=== PATIENT | male | born 1975 | race Caucasian/White ===

== ENCOUNTER 2016-06-04 00:35 | Emergency (ER) | payer BC ==
[~2016-06-04] VITALS: Ht 177.8 cm; Wt 117.0 kg
[~2016-06-04 00:35] MED LIST: FAMO-18 PO; LOSA100T7 PO; SIMV20TA97 PO; WARF6TAB35 PO
[2016-06-04 00:43] VITALS: Ht 177.8 cm; Wt 117.0 kg
--- NOTE | 2016-06-04 04:06 | RADRPT ---
PROCEDURE: XR Chest. CLINICAL INDICATION: Rule out metal FB TECHNIQUE: Single frontal chest x-ray. COMPARISON: None. FINDINGS: The lungs are clear. No focal opacification is seen. The cardiomediastinal silhouette is unremarka ble. The osseous structures are unremarkable. IMPRESSION: 1. There is no acute cardiopulmonary process. No radiopaque foreign body is seen. RPTAT: HJES .Manjinder Middleton MD, MD Date Time Electronically viewed and signed by .Manjinder Middleton MD, on 06/04/2016 04:05 .S/
--- NOTE | 2016-06-04 04:08 | RADRPT ---
PROCEDURE: XR Abdomen. CLINICAL INDICATION: Rule out metal foreign body TECHNIQUE: 3 AP views of the abdomen are available for review. COMPARISON: None. FINDINGS: The bowel gas pattern is normal. There is no evidence of obstruction. Phleboliths in lower pelvis.. The osseous structures are unremarkable. IMPRESSION: 1. Unremarkable abdomen x-ray series. No radiopaque foreign body is seen. RPTAT: HJES .Manjinder Middleton MD, MD Date Time Electronically viewed and signed by .Manjinder Middleton MD, on 06/04/2016 04:08 .S/
[2016-06-04 04:19] VITALS: BP 130/75; PULSE 70; RESP 20; TEMP 98.1
--- NOTE | 2016-06-04 04:41 | ERD ---
ER Documentation Chief Complaint Date/Time DATE: 06/04/16 TIME: 04:38 Chief Complaint swallowed a piece of his tooth brace 1o minutes ago HPI This is a 41-year-old male with a history of a blood clot on warfarin 2 years ago presenting to the emergency room stating that he swallowed a piece of metal wiring from his braces. Patient states that it is about 1 cm long, he states that he swallowed on it while he was chewing on something an hour ago. Patient denies any significant abdominal pain, melena, hematochezia, vomiting, nausea, fever. ROS All systems reviewed and are negative except as per history of present illness. 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) Anesthesia Reaction: No Hx Neurological Disorder: No Hx Respiratory Disorders: No Hx Cardiac Disorders: Yes (HTN, HYPERLIPIDEMIA) Hx Psychiatric Problems: No Hx Miscellaneous Medical Probl: No (blood clot leg) Hx Alcohol Use: Yes (SOCIALLY) Hx Substance Use: No Hx Tobacco Use: No Smoking Status: Never smoker Physical Exam Vitals Vital Signs Date Time Temp Pulse Resp B/P Pulse Ox O2 Delivery O2 Flow Rate FiO2 06/04/16 04:19 98.1 70 20 130/75 98 06/04/16 00:43 98.5 92 20 145/81 98 Physical Exam GENERAL: well-developed/well-nourished, in no apparent distress, non-toxic appearing HENT: NC/AT, moist mucous membranes EYES: Conjunctiva normal NECK: Supple, no lymphadenopathy PULM: CTA bilaterally, no rales, rhonchi, or wheezing heard CV: Normal S1S2, RRR, good capillary refill GI: Soft, non-distended, non-tender to palpation Normal bowel sounds, no masses or organomegaly felt on exam No gross peritonitis, no bruits Negative Rovsing, negative Aragon, negative McBurney's point, Negative CVAT BACK: No masses EXT: No clubbing, cyanosis, or edema NEURO: Alert and Orientated SKIN: Intact, normal turgor PSYCH: Normal mood and mentation Procedures/MDM This is a 41-year-old male with a history of a blood clot on warfarin 2 years ago presenting to the emergency room stating that he swallowed a 1cm piece of metal wiring from his braces 1 hour prior to being seen. I have a low suspicion for abdominal perforation due to his appearance, patient appears well and smiling. He has stable vital signs. A chest x-ray and XR KUB was done and did not show any radiopaque foreign bodies. I discussed with the patient that he is to return to the emergency room for any worsening signs or symptoms. I have given him precautions were to follow. Patient appears very stable and well for discharge. He understands and agrees with Departure Diagnosis: Primary Impression: Swallowed foreign body Condition: Stable Patient Instructions: Swallowed Foreign Body (Adult) Additional Instructions: FOLLOW UP WITH YOUR PRIMARY CARE PHYSICIAN TOMORROW.Return to this facility if you are not improving as expected. Take all medicines as directed. Return to this facility if you are not improving as expected. ANGELIC DODD PA-C Jun 04, 2016 04:41
== END 2016-06-04 04:19 | disposition home or self-care (01) ==
LOC: FTE 00:35
DX: T18.9XXA Foreign body of alimentary tract, part unspecified, initial encounter (principal); I10 Essential (primary) hypertension; X58.XXXA Exposure to other specified factors, initial encounter; Y92.9 Unspecified place or not applicable; Z79.01 Long term (current) use of anticoagulants
CPT/HCPCS: 71010; 74000

== ENCOUNTER 2016-07-26 21:51 | Emergency (ER) | payer BC ==
[~2016-07-26] VITALS: Ht 180.3 cm; Wt 114.0 kg
[~2016-07-26 21:51] MED LIST changes: +SIMV20TA PO; -SIMV20TA97 PO
[2016-07-26 21:55] VITALS: Ht 180.3 cm; Wt 114.0 kg
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
== END 2016-07-27 00:09 | disposition home or self-care (01) ==
LOC: FTE 21:51
DX: Z00.00 Encounter for general adult medical examination without abnormal findings (principal); I10 Essential (primary) hypertension; Z79.01 Long term (current) use of anticoagulants
CPT/HCPCS: 99282

== ENCOUNTER 2017-02-21 18:42 | Emergency (ER) | payer BC ==
[~2017-02-21] VITALS: Ht 180.3 cm; Wt 118.0 kg
[~2017-02-21 18:42] MED LIST changes: -FAMO-18 PO; +FAMO-96 PO
[2017-02-21 18:55] VITALS: Ht 180.3 cm; Wt 118.0 kg
--- NOTE | 2017-02-21 20:24 | ERD ---
ER Documentation Chief Complaint Date/Time DATE: 02/21/17 TIME: 20:21 Chief Complaint Mid sternal chest pain x1 week, non radiating. Hx: DVT(still coumadin) HPI Patient is a 41-year-old male with history of recurrent DVT presented to the ER with 2 weeks of gradual onset, constant, dull aching pain to his left lower extremity. The pain is from the medial thigh all the way down to his heel and is maximal at his heel. He also reports having intermittent episodes of sharp and pins and needles like substernal chest pain lasting a few seconds at a time. He reports nonexertional, mild dyspnea for the last week. He denies hemoptysis or cough. He denies fever. He is currently taking Coumadin. He states that he stopped taking it for 2 weeks approximately 2 months ago but has been compliant since. The patient acknowledges feeling anxious due to concern of recurrent DVT. ROS All systems reviewed and are negative except as per history of present illness. Medications Home Meds Reported Medications Cholecalciferol* (Vitamin D*) Unknown Strength Tablet, 1 TAB PO DAILY, TAB 02/21/17 Warfarin Sodium* (Coumadin*) 1 Mg Tablet, 6 MG PO DAILY, TAB 02/21/17 Simvastatin* (Zocor*) 20 Mg Tablet, 20 MG PO QHS, #30 TAB 12/15/15 Losartan Potassium* (Losartan Potassium*) 100 Mg Tablet, 100 MG PO DAILY, TAB 12/15/15 Discontinued Reported Medications Warfarin Sodium* (Warfarin Sodium*) 6 Mg Tablet, 6 MG PO DAILY, TAB 12/15/15 Discontinued Scripts Famotidine* (Pepcid*) 20 Mg Tablet, 20 MG PO BID for 30 Days, TAB Prov:AILEEN HEAD DO 12/15/15 Allergies Allergies: Coded Allergies: No Known Allergies (Verified Allergy, Mild, 02/21/17) PMhx/Soc Past medical history: DVT 2, hypertension, hyperlipidemia Past surgical history: Aortic angioplasty for coarctation Social history: Denies tobacco, alcohol or illicit drugs 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) Anesthesia Reaction: No Hx Neurological Disorder: No Hx Respiratory Disorders: No Hx Cardiac Disorders: Yes (HTN, HYPERLIPIDEMIA) Hx Psychiatric Problems: No Hx Miscellaneous Medical Probl: No (blood clot leg) Hx Alcohol Use: Yes (SOCIALLY) Hx Substance Use: No Hx Tobacco Use: No Smoking Status: Never smoker FmHx Family History: No coronary disease, No diabetes Physical Exam Vitals Vital Signs Date Time Temp Pulse Resp B/P Pulse Ox O2 Delivery O2 Flow Rate FiO2 02/21/17 21:41 97.6 82 18 130/84 99 Room Air 02/21/17 20:05 97.6 84 18 134/89 99 Room Air 02/21/17 18:55 97.6 89 18 146/88 99 Physical Exam Const: Alert, no acute distress Head: Atraumatic Eyes: Normal Conjunctiva, No pallor, no icterus ENT: Normal External Ears, Nose and Mouth. Moist mucous membranes Neck: Full range of motion..~ No meningismus. No JVD Resp: Clear to auscultation bilaterally, No wheezes, no rales Cardio: Regular rate and rhythm, no murmurs Abd: Soft, non tender, non distended. Normal bowel sounds Skin: No petechiae or rashes Back: No midline or flank tenderness Ext: No cyanosis, or edema. Mild medial tenderness to the left thigh and lower extremity. 2+ DP pulses in 4 extremities without delay. Neur: Awake and alert, Cranial nerves II through XII intact bilaterally, strength and sensation full in 470s. Psych: Normal Mood and Affect Result Diagram: 02/21/17201902/21/172019 Results 24 hrs Laboratory Tests Test 02/21/17 20:20 White Blood Count 9.410^3/ul Red Blood Count 5.1610^6/ul Hemoglobin 14.9g/dl Hematocrit 44.7% Mean Corpuscular Volume 86.6fl Mean Corpuscular Hemoglobin 28.9pg Mean Corpuscular Hemoglobin Concent 33.3g/dl Red Cell Distribution Width 12.8% Platelet Count 96816^3/UL Mean Platelet Volume 11.3fl Neutrophils % 39.3% Lymphocytes % 48.3% Monocytes % 9.4% Eosinophils % 2.0% Basophils % 0.7% Nucleated Red Blood Cells % 0.0/100WBC Neutrophils # 3.710^3/ul Lymphocytes # 4.510^3/ul Monocytes # 0.910^3/ul Eosinophils # 0.210^3/ul Basophils # 0.110^3/ul Nucleated Red Blood Cells # 0.010^3/ul Prothrombin Time 32.1Sec Prothrombin Time Ratio 2.5 INR International Normalized Ratio 3.06 Activated Partial Thromboplast Time 42.2Sec Sodium Level 138mmol/L Potassium Level 3.9mmol/L Chloride Level 103mmol/L Carbon Dioxide Level 26mmol/L Anion Gap 13 Blood Urea Nitrogen 19mg/dl Creatinine 1.35mg/dl Glucose Level 96mg/dl Calcium Level 9.4mg/dl Troponin I < 0.012ng/ml B-Type Natriuretic Peptide 36PG/ML [facility] EKG read by me: Time 1857, rate 87 Rhythm: Normal sinus [place]: Normal Intervals: Incomplete right bundle branch block ST-T waves: no ischemic changes Ectopy: No Q-waves: No Q waves, poor R-wave progression in anterior leads. Impression: No evidence of ischemia or arrhythmia MDM: Patient is a 41-year-old male with history of recurrent DVT who presents with left leg pain. There is no evidence of infection or trauma. Doppler ultrasound was negative for DVT. The patient is on Coumadin and has an INR of 3.1. The patient also complained of a very atypical chest pain that lasts a few seconds at a time in the mid chest. He also complains of shortness of breath. EKG is nonischemic, troponin is not elevated, chest x-ray is unremarkable. I do not believe his symptoms are concerning for a PE in the absence of a DVT and given that he is anticoagulated. He has stable vital signs. He has no tachypnea. I suspect that his dyspnea may be related to underlying anxiety. Regardless, even if the patient had a small PE, he is already on appropriate treatment. The patient was advised of his findings and stated that he felt significant relief. Departure Diagnosis: Primary Impression: Left leg pain Additional Impression: Dyspnea Dyspnea type: unspecified Qualified Code: R06.00 - Dyspnea, unspecified type Condition: LIEN Jackson MD Feb 21, 2017 20:24
[2017-02-21 20:30] LABS: BASOPHIL # 0.1 10^3/ul (0.0-0.1); BASOPHILS % 0.7 % (0.0-2.0); EOSINOPHILS # 0.2 10^3/ul (0.0-0.5); HEMATOCRIT 44.7 % (42.0-52.0); HEMOGLOBIN 14.9 g/dl (14.0-18.0); LYMPHOCYTES # 4.5 10^3/ul (0.8-2.9); LYMPHOCYTES % 48.3 % (15.0-51.0); MEAN CORPUSCULAR HEMOGLOBIN 28.9 pg (29.0-33.0); MEAN CORPUSCULAR HGB CONC 33.3 g/dl (32.0-37.0); MEAN CORPUSCULAR VOLUME 86.6 fl (82.0-101.0); MEAN PLATELET VOLUME 11.3 fl (7.4-10.4); MONOCYTE # 0.9 10^3/ul (0.3-0.9); MONOCYTES % 9.4 % (0.0-11.0); NEUTROPHIL # 3.7 10^3/ul (1.6-7.5); NEUTROPHILS % 39.3 % (39.0-77.0); PLATELET COUNT 186 10^3/UL (140-415); RED BLOOD COUNT 5.16 10^6/ul (4.70-6.10); RED CELL DISTRIBUTION WIDTH 12.8 % (11.5-14.5); WHITE BLOOD COUNT 9.4 10^3/ul (4.8-10.8)
--- NOTE | 2017-02-21 20:31 | RADRPT ---
PROCEDURE: XR Chest. CLINICAL INDICATION: Chest pain. TECHNIQUE: Single frontal view. COMPARISON: 06/04/2016. FINDINGS: The lungs are clear. The heart size is normal. There is no pleural effusion. There is no pneumothorax. IMPRESSION: 1. Normal chest radiograph. 2. No change from 06/04/2016. RPTAT: QQ .Daniele Ruth MD, MD Date Time Electronically viewed and signed by .Daniele Ruth MD, MD on 02/21/2017 20:31 .R/
[2017-02-21 20:49] LABS: ANION GAP 13 (8-16); BLOOD UREA NITROGEN 19 mg/dl (7-20); CALCIUM 9.4 mg/dl (8.4-10.2); CARBON DIOXIDE 26 mmol/L (21-31); CHLORIDE 103 mmol/L (97-110); CREATININE 1.35 mg/dl (0.61-1.24); GLUCOSE 96 mg/dl (70-220); POTASSIUM 3.9 mmol/L (3.5-5.1); SODIUM 138 mmol/L (135-144)
[2017-02-21] MEDS ORDERED: WARF1TAB47 PO (20:59)
--- NOTE | 2017-02-21 20:59 | RADRPT ---
PROCEDURE: US left lower extremity veins. CLINICAL INDICATION: Left leg pain and swelling. Chest pain. TECHNIQUE: Multiple longitudinal and transverse images of the left lower extremity veins were obta ined with hirsch scale and color Doppler imaging. The common femoral vein, femoral vein, and popliteal vein were evaluated. 2D grayscale measurements with compression sonography, pulsed Doppler, color D oppler, and pulsed Doppler with augmentation. COMPARISON: No prior studies are available for comparison. FINDINGS: The left common femoral, femoral and popliteal veins are normally compressible throughout. Color fl ow demonstrates normal filling of the vessels. Normal waveforms are visualized and there is normal response to augmentation. IMPRESSION: 1. No evidence of deep vein thrombosis involving the left lower extremity. RPTAT: QQ .Daniele Ruth MD, Date Time Electronically viewed and signed by .Daniele Ruth MD, on 02/21/2017 20:59 .R/
[2017-02-21] MEDS ORDERED: CHOL400T10 PO (21:00)
[2017-02-21 21:01] LABS: PARTIAL THROMBOPLASTIN TIME 42.2 Sec (25.0-35.0)
[2017-02-21 21:04] LABS: B-TYPE NATRIURETIC PEPTIDE 36 PG/ML (0-125)
[2017-02-21 21:05] LABS: TROPONIN-I < 0.012 ng/ml (0.00-0.12)
[2017-02-21 21:41] VITALS: BP 130/84; PULSE 82; RESP 18; TEMP 97.6
[2017-02-21 22:23] LABS: PROTIME 32.1 Sec (12.2-14.2)
[2017-02-21 22:24] LABS: PT RATIO 2.5
[2017-02-21 22:25] LABS: INR 3.06
== END 2017-02-21 21:44 | disposition home or self-care (01) ==
LOC: E/R 18:42
DX: M79.605 Pain in left leg (principal); R06.00 Dyspnea, unspecified; I10 Essential (primary) hypertension; Z79.01 Long term (current) use of anticoagulants
CPT/HCPCS: 36415; 71010; 80048; 83880; 84484; 85025; 85610; 85730; 93005; 93971